=== PATIENT | female | born 1945 | race Caucasian/White ===

== ENCOUNTER 2017-11-29 21:04 | Emergency (ER) | payer OTHER ==
[~2017-11-29] VITALS: Ht 157.5 cm; Wt 54.9 kg
[2017-11-29] MEDS ORDERED: LIPITOR20 MG (21:19)
[2017-11-29] MEDS ORDERED: NORVASC10 MG (21:19)
[2017-11-29] MEDS ORDERED: TOPROL XL50 M1 (21:20)
[2017-11-29] MEDS ORDERED: SYNTHROID50 MCG (21:20)
[2017-11-29] MEDS ORDERED: TRAM1TAB98 (21:20)
[2017-11-29] MEDS ORDERED: XANAX XR1 MG (21:21)
== END 2017-11-29 23:06 | disposition home or self-care (01) ==
LOC: ER 21:04
DX: S05.11XA Contusion of eyeball and orbital tissues, right eye, initial encounter (principal); S00.83XA Contusion of other part of head, initial encounter; W18.09XA Striking against other object with subsequent fall, initial encounter; Y93.B2 Activity, push-ups, pull-ups, sit-ups; Y92.091 Bathroom in other non-institutional residence as the place of occurrence of the external cause